=== PATIENT | female | born 1960 | race Caucasian/White ===

== ENCOUNTER 2017-04-30 20:06 | Inpatient (IN) ==
[2017-04-30] MEDS ORDERED: *HR* OxyCODONE/APAP 5/325 TABLET PO PRN (21:18)
[2017-05-01] MEDS: Ibuprofen 600 MG TABLET PO PRN ×2 (05:44→13:10)
[2017-05-01 05:47] LABS: Basophils # 0.1 K/mcL (0.0-0.2); Basophils % 0.7 %; Eosinophils # 0.4 K/mcL (0.0-0.6); Eosinophils % 5.7 %; Hematocrit 29.2 % (35.3-44.9); Hemoglobin 10.3 g/dL (11.5-15.4); Immature Granulocytes % 0.7 % (0-4); Lymphocytes # 1.2 K/mcL (0.6-4.6); Lymphocytes % 17.5 %; Mean Corpuscular HGB Conc 35.3 g/dL (31.6-35.5); Mean Corpuscular Hemoglobin 32.6 pg (28.0-33.3); Mean Corpuscular Volume 92.4 fL (83.0-100.0); Mean Platelet Volume 10.1 fL (9.4-12.4); Monocytes # 0.4 K/mcL (0.0-1.3); Monocytes % 6.2 %; Neutrophils # 4.8 K/mcL (1.6-8.9); Platelet Count 209 K/mcL (140-400); Red Blood Count 3.16 M/mcL (3.82-4.97); Red Cell Distribution Width 13.5 % (11.5-14.5); Segmented Neutrophils % 69.2 %
[2017-05-01 05:48] LABS: INR 1.1
[2017-05-01 05:51] LABS: Activated Partial Thrombo Time 27.2 Seconds (26.0-36.0)
[2017-05-01 05:57] LABS: BUN/Creatinine Ratio 19 (6-26); Blood Urea Nitrogen 13 mg/dL (7-20); Calcium 8.8 mg/dL (8.6-10.8); Carbon Dioxide 23 mEq/L (19-29); Chloride 109 mEq/L (98-109); Glucose 100 mg/dL (70-99); Osmolality,Calculated 288 (280-300); Potassium 3.9 mEq/L (3.5-4.5); Sodium 139 mEq/L (136-145); eGFR For African Americans > 60 (> 60); eGFR For Non-African Americans > 60 (> 60)
--- NOTE | 2017-05-01 13:03 | Internal Med History&Physical ---
Date of Encounter: 05/01/17 Time of Encounter: 13:02 Assessment and Plan (1) History of modified radical mastectomy of right breast Current visit: Yes Status: Acute Patient's here increase strength and endurance before discharge. (2) Breast cancer, right breast Current visit: No Status: Acute See above Qualifiers: Breast location: upper outer quadrant of breast Estrogen receptor status: positive Patient sex: female Qualified Code(s): C50.411 - Malignant neoplasm of upper-outer quadrant of right female breast; Z17.0 - Estrogen receptor positive status [ER+] Internal Medicine - H&P: HPI Admitted From: Hospital to Hospital Transfer (Patient had a modified radical mastectomy) Plans for Post Hospital Care: Home History of present illness: Ms. Chan is a 56 year old female Past Med Surg Social Fam HX - Past Medical History Medical history: cancer, other Psychiatric history: anxiety - Past Surgical History Surgical History: cancer surgery - Social History Smoking Status: Current every day smoker Smokeless Tobacco Status: No Alcohol use: none Drug use: none - Family History Mother Living Status: Hx Family Cancer: Yes (Breast Cancer) Internal Medicine - H&P: Meds No Known Home Drugs 03/01/17 [History] Ibuprofen [Motrin] 600 mg PO Q6HR PRN tab 04/30/17 [Rx] Omeprazole [PriLOSEC] 40 mg PO DAILY@0630 04/30/17 [Rx] OxyCODONE/APAP 5/325 [Percocet 5/325 MG] 1 each PO Q6HR PRN #30 tab 04/30/17 [Rx ] 3 Allergy/AdvReac Type Severity Reaction Status Date / Time Influenza Virus Vaccines Allergy See Verified 02/02/17 08:43 Comments All Systems PM: A 10-system review of systems was performed and is negative for pertinent findings except as documented above in the HPI. - Constitutional Vitals: Temp Pulse Resp BP Pulse Ox 98.2 F 78 18 94/64 96 05/01/17 11:44 05/01/17 11:44 05/01/17 11:44 05/01/17 11:44 05/01/17 11:44 - Head Head exam: Present: atraumatic, normal inspection, normocephalic - Neck Neck exam general surgery: Present: supple, trachea midline. Absent: lymphadenopathy - Respiratory Respiratory exam: Present: CTAB. Absent: accessory muscle use, rales, rhonchi, wheezes - Cardiovascular Cardiovascular exam: Present: RRR, +S1, +S2. Absent: diastolic murmur, gallop, rubs, systolic murmur - Incison Incision: Present: draining, red Comments: Patient had a right mastectomy with exploration of the axilla. She has a grade systolic drain which has a small amount radish clear liquid. - Skin Skin exam: Present: dry, intact Internal Med - H&P Results - Labs CBC & Chem 7: 05/01/17 05:30 05/01/17 05:30 Labs: Short CBC 05/01/17 Range/Units 05:30 WBC 7.0 (4.3-11.1) K/mcL Hgb 10.3 L (11.5-15.4) g/dL Hct 29.2 L (35.3-44.9) % Plt Count 209 (140-400) K/mcL Neutrophils # 4.8 (1.6-8.9) K/mcL BMP 05/01/17 05:30 Sodium 139 Potassium 3.9 Chloride 109 Carbon Dioxide 23 BUN 13 Creatinine 0.67 Glucose 100 H Calcium 8.8 Lab looks stable Abler stable
[2017-05-02 07:49] VITALS: BP 116/68
[2017-05-02] MEDS: Ibuprofen 600 MG TABLET PO PRN (08:25)
--- NOTE | 2017-05-02 13:11 | Physical Med Progress Note ---
Date of Encounter: 05/02/17 Time of Encounter: 13:07 Physical Medicine-PN: Subj Interval history: PMR PCC Note Patient was admitted due to deconditioning secondary to breast cancer. She is s /p mastectomy. Patient has a history of developmental delay. She has met all of her rehab goals. She is doing well with care of her drain. She is ambulating 500 feet without device. Plan to make her independent on the unit. She is CGA for shower transfers. Plan for discharge to home with home health care. - Constitutional Vitals: Vital Signs Temp Pulse Resp BP Pulse Ox 05/02/17 07:00 98.0 F 73 16 116/68 94 05/01/17 19:00 97.8 F 83 17 112/71 99 05/01/17 16:19 97.8 F 75 16 106/72 95 Intake and Output 05/01/17 05/02/17 05/02/17 23:59 07:59 15:59 Intake Total 560 / 560 480 / 480 Output Total / Balance 535 / 535 480 / 480 Intake: Oral 560 / 560 480 / 480 Output: Wound Drainage / Right chest 25 / Other: Meal Dinner Lunch Percent of Meal Consumed 100% 100% # Voids 1 1 Physical Medicine-PN: Obj Data - Labs CBC & Chem 7: 05/01/17 05:30 05/01/17 05:30 - ABG Interpretation ABG results: PT/INR, D-dimer PT 12.0 Seconds (9.4-12.1) 05/01/17 05:30 Consult Discharge Plan - Plan Referrals: NONE,PCP [Primary Care Provider] -
--- NOTE | 2017-05-02 14:21 | Discharge Summary ---
Date of Encounter: 05/02/17 Time of Encounter: 14:19 - Discharge Diagnosis (1) History of modified radical mastectomy of right breast Priority: Primary Status: Acute Comments: Patient was sent here after her surgery to make sure she could handle the dressing and not was independent. (2) Breast cancer, right breast Priority: Primary Status: Acute Comments: The reason for the admission was to increase strength and endurance and supervise dressing does have a draining Qualifiers: Breast location: upper outer quadrant of breast Estrogen receptor status: positive Patient sex: female Qualified Code(s): C50.411 - Malignant neoplasm of upper-outer quadrant of right female breast; Z17.0 - Estrogen receptor positive status [ER+] - Discharge Medications Home Medications: No Known Home Drugs 03/01/17 [History] Ibuprofen [Motrin] 600 mg PO Q6HR PRN tab 04/30/17 [Rx] Omeprazole [PriLOSEC] 40 mg PO DAILY@0630 04/30/17 [Rx] OxyCODONE/APAP 5/325 [Percocet 5/325 MG] 1 each PO Q6HR PRN #30 tab 04/30/17 [Rx ] Allergies/Adverse Reactions: 3 Allergy/AdvReac Type Severity Reaction Status Date / Time Influenza Virus Vaccines Allergy See Verified 02/02/17 08:43 Comments Date of admission: 04/30/17 20:17 Primary care physician: PCP NONE Consults: 04/30/17 20:35 Consult to Occupational Therapy [CONS] Routine Comment: Evaluate, develop and implement POC Reason for Consult: eval / tx Consult to Physical Therapy [CONS] Routine Comment: Evaluate, develop and implement POC Reason for Consult: eval / tx Consult to Recreational Therapy [CONS] Routine Comment: Evaluate, develop and implement POC Consult to Slurry Tank Operator [CONS] Routine Reason for SW Consult: d/c planning 05/01/17 18:21 Consult to Psychology [CONS] Routine Consulting Provider: Alee Barraza Reason for Consult: s/p radical mastectomy. assess pt coping skills d/t mental challenges. Call Completed: Yes Discharging clinician: Zeb Gustafson Anticipated date of discharge: 05/02/17 - Patient Status Disposition: Home Health Service Condition: Good Functional capacity at discharge: independent ambulation Overall status at discharge: patient is progressing back to baseline - Discharge Instructions Follow Up With: NONE,PCP [Primary Care Provider] - - Diet and Activity Activity: as per physical therapy Diet: advance to your usual diet Interval History: She was sent to surgery radical mastectomy with lymph node dissection the axia Hospital course: Ms. Chan is a 56 year old female She is independent and nursings go supervise dressing changes and home health therapy. - Time Spent with Patient Total time spent providing and/or coordinating discharge services: - Constitutional Vitals: Temp Pulse Resp BP Pulse Ox 98.0 F 73 16 116/68 94 05/02/17 07:00 05/02/17 07:00 05/02/17 07:00 05/02/17 07:00 05/02/17 07:00 - Head Head exam: Present: atraumatic, normal inspection, normocephalic - Neck Neck exam general surgery: Present: supple, trachea midline. Absent: lymphadenopathy - Respiratory Respiratory exam: Present: CTAB. Absent: accessory muscle use, rales, rhonchi, wheezes - Cardiovascular Cardiovascular exam: Present: RRR, +S1, +S2. Absent: diastolic murmur, gallop, rubs, systolic murmur
--- NOTE | 2017-05-02 14:24 | Physician Discharge Referral ---
Home Health/Hosp Referral Info Transfer to: Home Health Provider in Charge Post Discharge: PCP - Diagnosis (1) History of modified radical mastectomy of right breast Priority: Primary Status: Acute (2) Breast cancer, right breast Priority: Primary Status: Acute - Respiratory Orders Smoking Cessation: Smoking cessation has been advised. For more information, call the [place] Tobacco Quit Line at 3-292-EZJV-NOW. - Diet/Nutrition Diet/Nutrition Orders: Regular - Activity Activity Orders: Up ad safia - Services Needed Following services are medically necessary services: Nursing Other Treatments: Patient needs dressing changes checked on a daily basis for the axillary dressing. As she has a follow-up with Dr. Alvarenga - Transfer Medications Home Medications: No Known Home Drugs 03/01/17 [History] Ibuprofen [Motrin] 600 mg PO Q6HR PRN tab 04/30/17 [Rx] Omeprazole [PriLOSEC] 40 mg PO DAILY@0630 04/30/17 [Rx] OxyCODONE/APAP 5/325 [Percocet 5/325 MG] 1 each PO Q6HR PRN #30 tab 04/30/17 [Rx ] Allergies/Adverse Reactions: 3 Allergy/AdvReac Type Severity Reaction Status Date / Time Influenza Virus Vaccines Allergy See Verified 02/02/17 08:43 Comments Certification: Further, I certify that my clinical findings support that this patient is homebound (i.e. absences from home require considerable and taxing effort and are for medical reasons or protestant services or infrequently or short duration when for other reasons) because: Homebound Reason: Patient requires assistance of a person or device to safely leave home Attestation: My signature below is to certify that this patient is under my care and that I, or nurse practitioner, or a physician's ortho assistant working with me, has a face-to -face encounter with this patient.
[2017-05-03] MEDS ORDERED: *HR* Enoxaparin 40 MG/0.4 ML SYRINGE SQ SCH (06:00)
== END 2017-05-02 17:00 | disposition home health service (06) | DRG 950 ==
LOC: INPGRE 20:17
PROVIDERS: ADMIT Internal Medicine; ATTEND Internal Medicine